=== PATIENT | female | born 1970 | race Caucasian/White ===

== ENCOUNTER 2017-03-19 20:06 | Emergency (ER) | payer MEDICAID ==
[~2017-03-19] VITALS: Ht 165.1 cm; Wt 84.4 kg
[2017-03-19 20:18] VITALS: BP_SYST 145
--- NOTE | 2017-03-19 21:12 | NUR ---
PT AMBULATORY TO BED 3 FOR EVALUATION
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
--- NOTE | 2017-03-19 21:25 | NUR ---
Dr Bullock at bedside to evaluate patient.
[2017-03-19] MEDS ORDERED: CYCLOBENZAPRINE HCL 10 MG TABLET (FLEXERIL) PO ONE (21:30)
[2017-03-19] MEDS ORDERED: IBUPROFEN 800 MG TABLET PO ONE (21:30)
--- NOTE | 2017-03-19 22:25 | NUR ---
Patient resting quietly in no acute distress, no adverse reaction noted to medication. Awaiting dispo.
--- NOTE | 2017-03-19 23:10 | NUR ---
Patient given written and verbal discharge instructions and verbalizes understanding. ER MD discussed with patient the results and treatment provided. Patient in stable condition. ID arm band removed. Rx of Flexeril, Ibuprofen given. Patient educated on pain management and to follow up with PMD. Pain Scale 0. Opportunity for questions provided and answered. Patient left ER ambulating with slow, steady gait in no acute distress with family at side. No adverse reaction noted to medication.
== END 2017-03-19 23:10 | disposition home or self-care (01) ==
LOC: SED 20:06
DX: S46.912A Strain of unspecified muscle, fascia and tendon at shoulder and upper arm level, left arm, initial encounter (principal); S56.912A Strain of unspecified muscles, fascia and tendons at forearm level, left arm, initial encounter; R03.0 Elevated blood-pressure reading, without diagnosis of hypertension; V43.52XA Car driver injured in collision with other type car in traffic accident, initial encounter; Y93.89 Activity, other specified; Y92.410 Unspecified street and highway as the place of occurrence of the external cause; Y99.8 Other external cause status
CPT/HCPCS: 73030; 99284